=== PATIENT | male | born 1970 | race Caucasian/White ===

== ENCOUNTER → 2017-04-04 | Outpatient (CLI) | payer BC | LOC: BMCIMAGING 14:35 | PROVIDERS: ATTEND Family Medicine | DX: S69.91XA Unspecified injury of right wrist, hand and finger(s), initial encounter (principal); Y93.55 Activity, bike riding; Z87.81 Personal history of (healed) traumatic fracture ==

== ENCOUNTER → 2019-01-30 | Outpatient (CLI) | payer BC | LOC: BMCIMAGING 14:41 | PROVIDERS: ATTEND Family Medicine | DX: S49.92XA Unspecified injury of left shoulder and upper arm, initial encounter (principal) ==